=== PATIENT | male | born 1995 | race African-American/Black ===

== ENCOUNTER 2024-05-12 04:37 | Emergency (ER) | payer BC ==
[~2024-05-12] VITALS: Ht 182.9 cm; Wt 88.6 kg
[2024-05-12 04:56] VITALS: BP 118/71; PULSE 60; RESP 18; TEMP 98.7; O2SAT 98
[2024-05-12] MEDS ORDERED: AMOX1TAB16 MT (07:03)
== END 2024-05-12 09:06 | disposition home or self-care (01) ==
LOC: ER 04:37
DX: K04.7 Periapical abscess without sinus (principal); Z88.6 Allergy status to analgesic agent
CPT/HCPCS: 99283